=== PATIENT | male | born 1995 | race Caucasian/White ===

== ENCOUNTER 2017-02-19 13:59 | Emergency (ER) | payer BC, OTHER ==
[~2017-02-19] VITALS: Ht 193 cm; Wt 86.2 kg
--- NOTE | 2017-02-19 15:01 | ED General ---
General Chief Complaint: Upper Extremity Stated Complaint: R HAND INJ Nursing Triage Note: AMB TO ROOM REPORTS YESTERDAY HIT WALL WITH HIS R HAND. ABRASION TO R KNUCKLE 2ND THROUGH 3RD. Source of Information: Patient Exam Limitations: No Limitations History of Present Illness Time Seen by Provider: 14:20 Initial Comments This 21 year old young man presents to the ER with injury to the right hand after punching a wall out of anger. He has pain, swelling and ecchymosis over the distal right fourth metacarpal. Allergies and Home Medications Allergies Coded Allergies: Penicillins (Verified Adverse Reaction, Mild, 05/08/11) Constitutional: no symptoms reported Musculoskeletal: see HPI Skin: see HPI Psychiatric/Neurological: No Symptoms Reported Past Chxwmnz-Raeaaa-Jnyeho Hx Patient Social History Alcohol Use: Occasionally Uses Recreational Drug Use: No Smoking Status: Never a Smoker Recent Foreign Travel: No Contact w/Someone Who Travel: No Recent Infectious Disease Expo: No Immunizations Up To Date Tetanus Booster (TDap): Less than 5yrs Date of Influenza Vaccine: Dec 13, 2011 Surgeries History of Surgeries: No Respiratory History of Respiratory Disorde: No Cardiovascular History of Cardiac Disorders: No Neurological History of Neurological Disord: No Genitourinary History of Genitourinary Disor: No Musculoskeletal History of Musculoskeletal Dis: No Endocrine History of Endocrine Disorders: No HEENT History of HEENT Disorders: No Cancer History of Cancer: No Psychosocial History of Psychiatric Problem: No Integumentary History of Skin or Integumenta: No Physical Exam Vital Signs Vital Sign - Last 12Hours 02/19/17 02/19/17 14:03 15:41 Temp 98.0 Pulse 92 Resp 18 B/P (MAP) 136/80 Pulse Ox 99 Capillary Refill : General Appearance: No Apparent Distress, WD/WN HEENT: Normal ENT Inspection Respiratory: Lungs Clear, Normal Breath Sounds, No Accessory Muscle Use, No Respiratory Distress Cardiovascular: Regular Rate, Rhythm, No Edema, No Murmur Extremity: Other (ecchymosis, swelling, and tenderness over the distal fourth metacarpal of the right hand) Neurologic/Psychiatric: Alert, Oriented x3, No Motor/Sensory Deficits, Normal Mood/Affect, food and beverage coordinator II-XII Norm as Tested Skin: Warm/Dry, Ecchymosis Progress/Results/Core Measures Suspected Sepsis SIRS Temperature:98.0 Pulse: Respiratory Rate: Blood Pressure / Mean: Results/Orders My Orders Orders - ADELITA WEATHERS MD Hand, Right, 3 Views (02/19/17 14:26) Vital Signs/I&O Vital Sign - Last 12Hours 02/19/17 02/19/17 14:03 15:41 Temp 98.0 98.0 Pulse 92 92 Resp 18 18 B/P (MAP) 136/80 Pulse Ox 99 Capillary Refill : Diagnostic Imaging Diagonstic Imaging: Xray Plain Films/CT/US/NM/MRI: hand Comments Hand x-ray viewed by me and report reviewed. See report below: NAME: RONAN JEFFREY [facility] REC#: [id number] PT STATUS: REG ER : 1995 PHYSICIAN: ADELITA WEATHERS MD ADMIT DATE: 02/19/17/ER Draft Date of Exam:02/19/17 HAND, RIGHT, 3 VIEWS EXAMINATION: Right hand, 3 views. COMPARISON: None. HISTORY: 21-year-old male, punched wall last night. Pain and swelling of the third through fifth metacarpals. FINDINGS: There is no identified acute fracture or dislocation. There is no radiopaque foreign body. Joint spaces are well preserved. IMPRESSION: No identified acute bony abnormality of the right hand. Dictated on workstation # [id number] Dict: 02/19/17 1505 Trans: 02/19/17 1509 [facility] [id number] Interpreted by: SUKH MENDIOLA MD Departure Impression Impression: Primary Impression: Contusion of right hand Qualified Codes: S60.221A - Contusion of right hand, initial encounter Disposition: 01 HOME, SELF-CARE Condition: Stable Departure-Patient Inst. Decision time for Depature: 15:36 Referrals: [facility] (PCP/Family) Primary Care Physician Patient Instructions: Contusion (DC) Add. Discharge Instructions: Icing in 20 minute intervals, rest, and elevation should help with pain and swelling. You may take ibuprofen up to 800 mg every 8 hours as needed for pain. Add Tylenol (acetaminophen) up to 1000 mg every 6 hours as needed for additional pain relief. Return to care if you're not improving as anticipated or if you develop any problems or complications. All discharge instructions reviewed with patient and/or family. Voiced understanding. Scripts No Active Prescriptions or Reported Meds ADELITA WEATHERS MD Feb 19, 2017 15:01
--- NOTE | 2017-02-19 15:10 | Diagnostic Imaging Report ---
EXAMINATION: Right hand, 3 views. COMPARISON: None. HISTORY: 21-year-old male, punched wall last night. Pain and swelling of the third through fifth metacarpals. FINDINGS: There is no identified acute fracture or dislocation. There is no radiopaque foreign body. Joint spaces are well preserved. IMPRESSION: No identified acute bony abnormality of the right hand. Dictated by: Dictated on workstation # [id number]
== END 2017-02-19 15:41 | disposition home or self-care (01) ==
LOC: EDUNIT# 13:59 → ER 14:01
DX: S60.221A Contusion of right hand, initial encounter (principal); W22.01XA Walked into wall, initial encounter
CPT/HCPCS: 73130; 99282

== ENCOUNTER 2019-04-15 16:09 | Emergency (ER) | payer OTHER ==
[~2019-04-15] VITALS: Ht 193 cm; Wt 90.0 kg
--- NOTE | 2019-04-15 17:43 | ED Cough/URI ---
General Chief Complaint: Cough/Cold/Flu Symptoms Stated Complaint: COLD/FLU SYMPTOMS Nursing Triage Note: C/O body aches, sore throat, fever (100) diarrhea, cough, since last noght Sepsis Screen: Possible Sepsis Risk Source: patient Exam Limitations: no limitations History of Present Illness Date Seen by Provider: Apr 15, 2019 Time Seen by Provider: 17:41 Initial Comments 23-year-old male patient presents with fever of 100, bodyaches, sore throat, diarrhea, cough, and rhinorrhea beginning last night. Denies improvement with Tylenol. Timing/Duration: yesterday, getting worse Severity/Quality: productive cough (clear) Prior Episodes/Possible Cause: no prior episodes Modifying Factors: Worse With Coughing Allergies and Home Medications Allergies Coded Allergies: Penicillins (Verified Adverse Reaction, Mild, 05/08/11) Home Medications Ondansetron 8 Mg Tab.rapdis, 8 MG PO Q6H PRN for NAUSEA/VOMITING Prescribed by: CALVIN SUAREZ on 04/15/19 4558 Patient Home Medication List Home Medication List Reviewed: Yes Review of Systems Review of Systems Constitutional: see HPI, chills; No dizziness; fever, malaise EENTM: see HPI, ear pain, nose congestion, throat pain; No hoarseness, No throat swelling Respiratory: cough, phlegm; No short of breath, No stridor, No wheezing Cardiovascular: no symptoms reported Gastrointestinal: No abdominal pain, No constipation; diarrhea; No hematemesis, No heartburn, No loss of appetite, No nausea, No vomiting Genitourinary: no symptoms reported Musculoskeletal: see HPI, other (generalized body aches) Skin: no symptoms reported Psychiatric/Neurological: Headache All Other Systems Reviewed Negative Unless Noted: Yes (Negative excepted noted.) Past Zwewouo-Mrrnjk-Bllply Hx Past Med/Social Hx: Reviewed Nursing Past Med/Soc Hx Patient Social History Alcohol Use: Occasionally Uses Recreational Drug Use: No Smoking Status: Never a Smoker 2nd Hand Smoke Exposure: No Recent Foreign Travel: No Contact w/Someone Who Travel: No Recent Infectious Disease Expo: No Physical Abuse: No Sexual Abuse: No Mistreated: No Fear: No Immunizations Up To Date Tetanus Booster (TDap): Less than 5yrs Date of Influenza Vaccine: Dec 13, 2011 Past Medical History Surgeries: No Respiratory: No Cardiac: No Neurological: No Genitourinary: No Musculoskeletal: No Endocrine: No HEENT: No Cancer: No Psychosocial: No Integumentary: No Family Medical History Reviewed Nursing Family Hx No Pertinent Family Hx Physical Exam Vital Signs - First Documented 04/15/19 04/15/19 16:26 18:19 Temp 37.3 Pulse 100 Resp 16 B/P (MAP) 112/50 (70) Pulse Ox 98 O2 Delivery Room Air Capillary Refill : Less Than 3 Seconds Height: 6'4.00" Weight: 190lbs. oz. 86.253499dm; 24.00 BMI Method:Stated General Appearance: WD/WN, no apparent distress HEENT: PERRL/EOMI, pharyngeal erythema, other (positive nasal congestion, rhinorrhea, and air fluid levels to the bilateral TMs. No evidence of erythema, retractions, bulging, or perforation to the TMs.) Neck: non-tender, full range of motion, supple, lymphadenopathy (R), lymphadenopathy (L) Respiratory: lungs clear, normal breath sounds, no respiratory distress, no accessory muscle use Cardiovascular: normal peripheral pulses, regular rate, rhythm, no murmur Extremities: normal inspection, normal capillary refill Neurologic/Psychiatric: alert, normal mood/affect, oriented x 3 Skin: normal color, warm/dry Progress/Results/Core Measures Suspected Sepsis Recent Fever Within 48 Hours: Yes Infection Criteria Present: Suspected New Infection New/Unexplained Altered Menta: No Sepsis Screen: Possible Sepsis Risk SIRS Temperature: Pulse: 100 Respiratory Rate: 16 Blood Pressure 112 /50 Mean: 70 Results/Orders Micro Results Microbiology 04/15/19 Influenza Types A,B Antigen (ANTONINO) - Final, Complete My Orders Orders - CALVIN SUAREZ Rx-Oseltamivir Caps (Rx-Tamiflu Caps) (04/15/19 17:54) Rx-Ondansetron Po (Rx-Zofran Po) (04/15/19 17:54) Vital Signs/I&O 04/15/19 04/15/19 16:26 18:19 Temp 37.3 37.3 Pulse 100 100 Resp 16 16 B/P (MAP) 112/50 (70) 112/50 (70) Pulse Ox 98 O2 Delivery Room Air Capillary Refill : Less Than 3 Seconds Blood Pressure Mean: 70 Departure Communication (Admissions) Patient seen and evaluated. Lab findings discussed with the patient. Plan for discharge to home with oral Tamiflu and Zofran. Impression Primary Impression: Influenza B Disposition: HOME, SELF-CARE Condition: Improved Departure-Patient Inst. Decision time for Depature: 17:42 Referrals: [facility] (PCP/Family) Primary Care Physician Patient Instructions: Flu, Adult (DC) Add. Discharge Instructions: All discharge instructions reviewed with patient and/or family. Voiced understanding. Tamiflu 75 mg by mouth twice daily for 5 days. [id number] Tylenol as directed for fever or pain. Ibuprofen 800 mg by mouth every 8 hours as needed for pain or fever. Stay well hydrated. Rest. Zsrf-mek-cdupzop decongestants, antihistamines, and cough suppressants as needed for symptomatic relief. Follow-up with [facility] for recheck as an outpatient if no improvement in symptoms. Return to the emergency department for worsened symptoms or any other concerns. Scripts Ondansetron (Ondansetron Odt) 8 Mg Tab.rapdis 8 MG PO Q6H PRN for NAUSEA/VOMITING, #10 TAB 0 Refills Prov: CALVIN SUAREZ 04/15/19 Work/School Note: Work Release Form Date Seen in the Emergency Department: Apr 15, 2019 Return to Work: Apr 17, 2019 Restrictions: Return-No Fever (24hrs), Return-No Vomiting(24hrs) CALVIN SUAREZ Apr 15, 2019 17:43
[2019-04-15] MEDS ORDERED: RX-OSELTAMIVIR 75 MG (TAMIFLU) BOX OF 10 PO STA (17:54)
[2019-04-15] MEDS ORDERED: RX-ONDANSETRON 4 MG ODT (ZOFRAN) PPK #4 PO STA (17:54)
[2019-04-15] MEDS ORDERED: ONDA8TAB13 PO (17:57)
[2019-04-15 18:19] VITALS: BP 112/50
== END 2019-04-15 18:23 | disposition home or self-care (01) ==
LOC: EDUNIT# 16:09 → ER 16:10
DX: J10.1 Influenza due to other identified influenza virus with other respiratory manifestations (principal); Z88.0 Allergy status to penicillin
CPT/HCPCS: 87804